=== PATIENT | male | born 1995 | race Caucasian/White ===

== ENCOUNTER 2016-08-29 14:59 | Emergency (ER) | payer OTHER ==
[2016-08-29 15:18] VITALS: BP 144/91; PULSE 82; TEMP 98; BMI 28.7
[2016-08-29] MEDS ORDERED: DIPHTH,PERTUSS(ACELL),TET 0.5 ML DISP.SYRIN IM ONE (16:13)
[2016-08-29] MEDS ORDERED: ACETAMINOPHEN 500 MG TABLET (FP) PO ONE (16:13)
[2016-08-29] MEDS ORDERED: ACETAMINOPHEN 325 MG TABLET (FP) ONE (16:15)
--- NOTE | 2016-08-29 16:39 | PDOC ---
History of Present Illness - General Chief Complaint: Injury Stated Complaint: FALL, ANKLE PAIN Time Seen by Provider: 08/29/16 15:22 History Source: Patient Exam Limitations: No Limitations - History of Present Illness Initial Comments: 08/29/16 16:35 21-year-old male status post mechanical fall presents to the ED with complaints of right first toe pain after missing the last step of his stairs causing him to land directly on the toe sustaining injury and a small laceration. Patient states unsure of his last tetanus and states is unable to move his big toe secondary to discomfort and swelling. Patient denies previous injury to the affected area and denies any radiation of pain. Occurred: reports: just prior to arrival Severity: reports: mild Pain Location: reports: lower extremity Method of Injury: Yes: fall Loss of Consciousness: no loss of consciousness Associated Symptoms (Fall): trouble walking Past History - Past Medical History Allergies/Adverse Reactions: Allergies Allergy/AdvReac Type Severity Reaction Status Date / Time No Known Allergies Allergy Verified 08/29/16 15:15 Home Medications: Ambulatory Orders Unobtainable [Unobtainable] 07/28/15 - Immunization History Immunization Up to Date: Yes - Psycho/Social/Smoking Cessation Hx Anxiety: No Suicidal Ideation: No Smoking History: Never smoked Have you smoked in the past 12 months: No Information on smoking cessation initiated: No Hx Alcohol Use: No Drug/Substance Use Hx: No Substance Use Type: Alcohol Patient Lives Alone: No Lives with/in: parents Review of Systems - Review of Systems Able to Perform ROS?: Yes Constitutional: No: Symptoms Reported HEENTM: No: Symptoms Reported Respiratory: No: Symptoms reported ABD/GI: No: Symptoms Reported Musculoskeletal: Yes: Joint Pain (right 1 st toe) Integumentary: Yes: Bruising, Erythema Neurological: No: Symptoms reported *Physical Exam - Vital Signs Last Vital Signs Temp Pulse Resp BP Pulse Ox 98 F 82 18 144/91 99 08/29/16 15:15 08/29/16 15:15 08/29/16 15:15 08/29/16 15:15 08/29/16 15:15 - Physical Exam General Appearance: Yes: Nourished, Appropriately Dressed. No: Apparent Distress Vascular Pulses: Dorsalis-Pedis (R): 2+ Integumentary: positive: Ecchymosis (with edema to the right first toe. Patient also with 1.5 cm abrasion to dorsal aspect of the DIP joint), Other (no crepitus no deformity) Neurologic: positive: Normal Mood/Affect, Motor Strength 5/5 (ambulatory) ED Treatment Course - RADIOLOGY Radiology Studies Ordered: Category Date Time Status TOE(S) RIGHT [RAD] Stat Radiology 08/29/16 16:13 Ordered - Medications Given in the ED: ED Medications Discontinued Medications Generic Name Dose Route Start Last Admin Trade Name Freq PRN Reason Stop Dose Admin Acetaminophen 975 mg 08/29/16 16:13 08/29/16 16:18 Tylenol - PO 08/29/16 16:14 975 mg ONCE ONE Administration Medical Decision Making - Medical Decision Making 08/29/16 16:39 Patient status post mechanical fall now complaining of right first toe injury. Patient with edematous ecchymotic toe with limited range of motion with flexion and extension. Patient ordered for tetanus, Tylenol and x-ray 08/29/16 17:06 X-ray negative for gross bone or soft tissue abnormality. Patient will have bertha tape placed between first and second toe and given an orthostatic for support. Patient also recommended to place ice to the affected area elevate and take NSAIDs such as Motrin or Tylenol for discomfort. *DC/Admit/Observation/Transfer Diagnosis at time of Disposition: Contusion of toe Qualifiers: Encounter type: initial encounter Toe: great toe Damage to nail status: without damage Laterality: right Qualified Code(s): S90.111A - Contusion of right great toe without damage to nail, initial encounter - Discharge Dispostion Disposition: HOME Condition at time of disposition: Good - Referrals Referrals: Tomasz Choudhary [Primary Care Provider] - - Patient Instructions Printed Discharge Instructions: DI for Toe Sprain Additional Instructions: Take Motrin or Tylenol as needed or at least every 8 hours. Please apply ice to the affected area for the next 3 days and elevate higher than your heart. Please use ortho shoe when walking and remove at night. Keep bertha taped for the next 2-3 days to allow healing.
[2016-08-29] MEDS ORDERED: BACITRACIN 30 GM TUBE TOPICAL OINTMENT ONE (17:07)
== END 2016-08-29 17:15 | disposition home or self-care (01) ==
LOC: JERFT 14:59
PROC: 3E0234Z Introduction of Serum, Toxoid and Vaccine into Muscle, Percutaneous Approach (ICD-10-PCS; principal; 2016-08-29)
DX: S90.111A Contusion of right great toe without damage to nail, initial encounter (principal); W10.8XXA Fall (on) (from) other stairs and steps, initial encounter; Y93.89 Activity, other specified; Y92.038 Other place in apartment as the place of occurrence of the external cause
CPT/HCPCS: 73660-TC; 90715; 99281-25